=== PATIENT | male | born 1980 | race Caucasian/White ===

== ENCOUNTER → 2021-06-02 | Outpatient (REF) | LOC: M LABSMTC 11:29 | PROVIDERS: ATTEND Pediatrics | DX: Z11.52 Encounter for screening for COVID-19 (principal) ==

== ENCOUNTER → 2021-09-23 | Outpatient (CLI) | payer OTHER | LOC: M RAD 06:12 | PROVIDERS: ATTEND Nurse Practitioner Family | DX: Z87.820 Personal history of traumatic brain injury (principal) ==

== ENCOUNTER → 2022-01-08 | Outpatient (REF) | LOC: M PLAIMG 11:02 | PROVIDERS: ATTEND Internal Medicine | DX: Z00.00 Encounter for general adult medical examination without abnormal findings (principal) ==